=== PATIENT | female | born 1995 | race Caucasian/White ===

== ENCOUNTER 2016-10-25 23:07 | Emergency (ER) | payer OTHER ==
[~2016-10-25] VITALS: Ht 167.6 cm; Wt 82.8 kg
[~2016-10-25 23:07] MED LIST: INDOCIN25 MG PO; MOTRIN600 MG PO; NORCO 5/3251 TABLET PO; ULTRACET1 TABLET PO
[2016-10-26] MEDS ORDERED: PRENATAL TABLE1 EAC3 PO (00:30)
[2016-10-26 01:06] LABS: HEMATOCRIT 42.3 % (36.0-46.0); MCH 29.7 PG (29.0-34.0); MCHC 34.8 G/DL (30.0-36.0); MCV 85.5 FL (83-99); MEAN PLAT.VOLUME 11.2 uM^3 (9.5-12.4); PLATELET COUNT 211 K/uL (156-360); RBC DIS.WIDTH-CV 11.8 % (11.8-14.6); RBC DIS.WIDTH-SD 35.3 % (39-53); RED BLOOD COUNT 4.95 M/uL (3.80-5.20)
[2016-10-26 01:13] LABS: WHITE BLOOD COUNT 10.7 K/uL (4.1-10.2)
[2016-10-26 01:14] LABS: CHLORIDE 108 mEq/L (99-109); POTASSIUM 3.7 mEq/L (3.7-5.4); SODIUM 139 mEq/L (136-147)
[2016-10-26 01:16] LABS: GLUCOSE 104 mg/dL (70-99)
[2016-10-26 01:18] LABS: ANION GAP 9 MEQ/L (2-14)
[2016-10-26 01:20] LABS: GFR ESTIMATE (CALCULATED) > 59 mL/min/
[2016-10-26 01:21] LABS: UREA NITROGEN (BUN) 9 mg/dL (9-23)
[2016-10-26 01:28] LABS: QUANTITATIVE HCG 16.7 MIU/ML
[2016-10-26 02:05] LABS: ADD MIUA? YES; BILIRUBIN NEGATIVE; BLOOD LARGE; COLOR YELLOW ((YELLOW)); GLUCOSE (STRIP) NEGATIVE; KETONES 40; LEUKOCYTES SMALL; NITRITE NEGATIVE; PH, URINE 5.5 (5-8); PROTEIN (STRIP) TRACE; SPECIFIC GRAVITY 1.028 (1.000-1.030); UROBILINOGEN 0.2 MG/DL (0.2-1.0)
[2016-10-26 02:26] LABS: BACTERIA 1+; CASTS NONE SEEN /LPF; CRYSTALS NONE SEEN; EPITHELIAL CELLS RARE; MUCUS NONE SEEN; RED BLOOD CELLS 0-5 /HPF (0-5); UCUL ADDED? NO; WHITE BLOOD CELLS 0-5 /HPF (0-5)
[2016-10-26 02:27] VITALS: BP 129/77
== END 2016-10-26 02:28 | disposition home or self-care (01) ==
LOC: EME 23:07 → EXP 23:07
PROVIDERS: Physician Assistant
DX: O20.0 Threatened abortion (principal); O20.9 Hemorrhage in early pregnancy, unspecified; R10.30 Lower abdominal pain, unspecified; Z3A.01 Less than 8 weeks gestation of pregnancy
CPT/HCPCS: 76801; 80048; 81003; 84702; 85027; 99281; 99284

== ENCOUNTER 2017-05-22 01:17 | Emergency (ER) | payer OTHER ==
[~2017-05-22] VITALS: Ht 170.2 cm; Wt 84.8 kg
[~2017-05-22 01:17] MED LIST changes: +PRENATAL TABLE1 EAC3 PO
[2017-05-22 02:00] LABS: HEMATOCRIT 40.9 % (36.0-46.0); MCH 29.3 PG (29.0-34.0); MCHC 34.5 G/DL (30.0-36.0); MEAN PLAT.VOLUME 10.8 uM^3 (9.5-12.4); PLATELET COUNT 223 K/uL (156-360); RBC DIS.WIDTH-CV 11.7 % (11.8-14.6); RED BLOOD COUNT 4.81 M/uL (3.80-5.20); WHITE BLOOD COUNT 10.4 K/uL (4.1-10.2)
[2017-05-22 02:12] LABS: CHLORIDE 106 mEq/L (99-109); POTASSIUM 3.5 mEq/L (3.7-5.4); SODIUM 139 mEq/L (136-147)
[2017-05-22 02:14] LABS: GLUCOSE 101 mg/dL (70-99)
[2017-05-22 02:15] LABS: ANION GAP 11 MEQ/L (2-14)
[2017-05-22 02:16] LABS: TOTAL BILIRUBIN 0.6 mg/dL (0.0-1.0)
[2017-05-22 02:18] LABS: ALKALINE PHOSPHATASE 52 IU/L (3-129); GFR ESTIMATE (CALCULATED) > 59 mL/min/
[2017-05-22 02:19] LABS: UREA NITROGEN (BUN) 10 mg/dL (9-23)
[2017-05-22 02:28] LABS: ADD MIUA? NO; BILIRUBIN NEGATIVE; BLOOD NEGATIVE; COLOR COLORLESS ((YELLOW)); GLUCOSE (STRIP) NEGATIVE; KETONES NEGATIVE; LEUKOCYTES NEGATIVE; NITRITE NEGATIVE; PROTEIN (STRIP) NEGATIVE; SPECIFIC GRAVITY 1.003 (1.000-1.030); UCUL ADDED? NO; UROBILINOGEN 0.2 MG/DL (0.2-1.0)
[2017-05-22 02:48] LABS: QUANTITATIVE HCG 140139.6 MIU/ML
[2017-05-22 03:35] VITALS: BP 140/70
== END 2017-05-22 03:36 | disposition home or self-care (01) ==
LOC: EME 01:17
PROVIDERS: Physician Assistant
DX: O26.891 Other specified pregnancy related conditions, first trimester (principal); R10.30 Lower abdominal pain, unspecified; Z3A.08 8 weeks gestation of pregnancy
CPT/HCPCS: 76801; 80053; 81003; 84702; 85027

== ENCOUNTER → 2017-10-13 | Outpatient (CLI) | payer OTHER ==
[~2017-10-13] VITALS: Ht 170.2 cm; Wt 88.2 kg
[~2017-10-13] MED LIST changes: +TYLENOL EXTRA500 MG PO
[2017-10-13 13:09] VITALS: BP 135/86
== END | disposition home or self-care (01) ==
LOC: IVINF 12:56
DX: Z31.82 Encounter for Rh incompatibility status (principal); Z3A.28 28 weeks gestation of pregnancy; Z67.41 Type O blood, Rh negative
CPT/HCPCS: 96372; J2790

== ENCOUNTER 2017-12-23 20:02 | Inpatient (IN) | payer OTHER ==
[~2017-12-23] VITALS: Ht 167.6 cm; Wt 95.0 kg
[2017-12-23 20:42] VITALS: BP 156/95
[2017-12-23] MEDS ORDERED: TUMS500 MG PO (20:48)
[2017-12-23 21:28] VITALS: BP 153/95
[2017-12-23 21:28] LABS: BASOPHIL (%) 0.3 % (0-1); EOSINOPHIL (%) 0.4 % (0-5); HEMATOCRIT 38.2 % (36.0-46.0); HEMOGLOBIN 12.6 G/DL (11.9-15.5); LYMPHOCYTE (%) 25.6 % (15-42); LYMPHOCYTE COUNT 2.9 K/uL (1.0-2.8); MCH 27.8 PG (29.0-34.0); MCV 84.1 FL (83-99); MONOCYTE (%) 5.5 % (3-12); MONOCYTE COUNT 0.6 K/uL (0-0.8); NEUTROPHIL (%) 67.2 % (45-76); NEUTROPHIL COUNT 7.6 K/uL (1.8-6.4); PLATELET COUNT 180 K/uL (156-360); RBC DIS.WIDTH-CV 13.6 % (11.8-14.6); RED BLOOD COUNT 4.54 M/uL (3.80-5.20); WHITE BLOOD COUNT 11.3 K/uL (4.1-10.2)
[2017-12-23 21:46] LABS: ALBUMIN 3.5 G/DL (3.2-4.8); ALKALINE PHOSPHATASE 226 IU/L (3-129); ALT (GPT) 5 IU/L (3-49); AST (GOT) 14 IU/L (2-34); CHLORIDE 105 MEQ/L (99-109); CREATININE 0.6 MG/DL (0.6-1.3); GFR ESTIMATE (CALCULATED) > 59 mL/min/; GLUCOSE 104 mg/dL (70-99); POTASSIUM 3.7 MEQ/L (3.7-5.4); SODIUM 138 MEQ/L (136-147); TOTAL BILIRUBIN 0.3 MG/DL (0.0-1.0); TOTAL PROTEIN 6.5 G/DL (6.4-8.3); UREA NITROGEN (BUN) 7 mg/dL (9-23)
[2017-12-23 22:31] VITALS: BP 152/95
[2017-12-23 22:32] LABS: AMPHETAMINE NEGATIVE (500 ng/mL); BARBITURATES NEGATIVE (200 ng/mL); BENZODIAZEPINES NEGATIVE (150 ng/mL); BUPRENORPHINE NEGATIVE (10 ng/mL); COCAINE NEGATIVE (150 ng/mL); METHADONE NEGATIVE (200 ng/mL); METHAMPHETAMINE NEGATIVE (500 ng/mL); OPIATES (MORPHINE) NEGATIVE (100 ng/mL); OXYCODONE NEGATIVE (100 ng/mL); PHENCYCLIDINE NEGATIVE (25 ng/mL); PROPOXYPHENE NEGATIVE (300 ng/mL); THC CANNABINOIDS NEGATIVE (50 ng/mL); TRICYCLIC ANTIDEPRESSANTS NEGATIVE (300 ng/mL)
[2017-12-24] VITALS (13 sets, daily range): BP systolic 125–138; BP diastolic 59–92
[2017-12-24] MEDS ORDERED: IBUPROFEN800 MG PO (06:57)
[2017-12-25 00:01] VITALS: BP 131/79
[2017-12-25 09:20] LABS: BASOPHIL (%) 0.5 % (0-1); BASOPHIL COUNT 0.1 K/uL (0-0.1); EOSINOPHIL (%) 0.6 % (0-5); EOSINOPHIL COUNT 0.1 K/uL (0-0.3); HEMATOCRIT 33.1 % (36.0-46.0); HEMOGLOBIN 10.7 G/DL (11.9-15.5); IMMATURE GRANULOCYTE (%) 0.6 % (0.0-0.7); LYMPHOCYTE (%) 23.6 % (15-42); LYMPHOCYTE COUNT 2.9 K/uL (1.0-2.8); MCH 28.4 PG (29.0-34.0); MCHC 32.3 G/DL (30.0-36.0); MCV 87.8 FL (83-99); MONOCYTE COUNT 0.8 K/uL (0-0.8); NEUTROPHIL (%) 68.7 % (45-76); NEUTROPHIL COUNT 8.6 K/uL (1.8-6.4); PLATELET COUNT 172 K/uL (156-360); RBC DIS.WIDTH-CV 14.3 % (11.8-14.6); RBC DIS.WIDTH-SD 45.9 % (39-53); RED BLOOD COUNT 3.77 M/uL (3.80-5.20); WHITE BLOOD COUNT 12.5 K/uL (4.1-10.2)
== END 2017-12-25 17:45 | disposition home or self-care (01) | DRG 775 ==
LOC: LDRP-OP 20:02 → 2WEST 20:04
PROVIDERS: Advanced Practice Midwife; Midwife
PROC: 10E0XZZ Delivery of Products of Conception, External Approach (ICD-10-PCS; principal; 2017-12-24)
PROC: 0HQ9XZZ Repair Perineum Skin, External Approach (ICD-10-PCS; 2017-12-24)
DX: O99.214 Obesity complicating childbirth (principal); E66.9 Obesity, unspecified; Z68.33 Body mass index [BMI] 33.0-33.9, adult; O70.0 First degree perineal laceration during delivery; Z3A.38 38 weeks gestation of pregnancy; Z37.0 Single live birth
CPT/HCPCS: 80053; 85025; G0378; J7120